=== PATIENT | male | born 1980 | race African-American/Black ===

== ENCOUNTER 2020-05-07 10:44 | Emergency (ER) | payer SELFPAY ==
[~2020-05-07] VITALS: Ht 188 cm; Wt 124.2 kg
--- NOTE | 2020-05-07 11:02 | NUR ---
PT REPORTS HE HAD RAMIREZ X1 WEEK AND STARTED CHECKING BP, BP AT HOME WAS 180/110. DENIES CURRENT RAMIREZ OR DIZZINESS AT THIS TIME. PLACED ON CARDIAC AND VITALS MONITORS, CALL LIGHT WITHIN REACH, FALL PRECAUTIONS IN PLACE.
[2020-05-07 11:47] LABS: BASOPHILS # (AUTO) 0.03 x10^3/uL (0-0.1); BASOPHILS % (AUTO) 1 % (0-1); EOSINOPHILS # (AUTO) 0.05 x10^3/uL (0-0.4); EOSINOPHILS % (AUTO) 1 % (1-7); LYMPHOCYTES % (AUTO) 41 % (22-44); MD NO; MEAN CORPUSCULAR HEMOGLOBIN 29.6 pg (27.5-34.5); MEAN CORPUSCULAR HGB CONC 32.3 g/dL (33.2-36.2); MEAN CORPUSCULAR VOLUME 91.7 fL (81-97); MEAN PLATELET VOLUME 7.9 fL (7.4-10.4); MONOCYTES # (AUTO) 0.42 x10^3/uL (0.2-0.8); MONOCYTES % (AUTO) 8 % (2-9); NEUTROPHILS # (AUTO) 2.56 x10^3/uL (1.8-6.8); NEUTROPHILS % (AUTO) 50 % (42-75); PLATELET COUNT 262 x10^3/uL (130-400); RED BLOOD COUNT 5.55 x10^6/uL (4.38-5.82); RED CELL DISTRIBUTION WIDTH 13.5 % (9.4-14.8)
[2020-05-07 11:58] LABS: ALBUMIN 4.2 g/dL (3.4-5.0); CREATININE 1.45 mg/dL (0.7-1.3)
[2020-05-07 12:02] LABS: TROPONIN I < 0.015 ng/mL (0.000-0.045)
--- NOTE | 2020-05-07 12:09 | NUR ---
PT RESTING ON [employer] IN NAD. NO NEEDS AT THIS TIME. CALL LIGHT WITHIN REACH.
[2020-05-07 12:14] LABS: ANION GAP 4 mmol/L (5-15); CHLORIDE 108 mmol/L (98-107)
--- NOTE | 2020-05-07 13:11 | NUR ---
PT RESTING IN NAD, NO NEEDS AT THIS TIME.
[2020-05-07 14:02] VITALS: BP 151/112
== END 2020-05-07 14:13 | disposition home or self-care (01) ==
LOC: ED 13:03
DX: I10 Essential (primary) hypertension (principal); F17.200 Nicotine dependence, unspecified, uncomplicated
CPT/HCPCS: 36415; 80048; 82040; 84484; 85025; 93005; 99285